=== PATIENT | female | born 1945 | race Caucasian/White ===

== ENCOUNTER 2018-01-07 09:22 | Outpatient (CLI) | payer MEDICARE, OTHER ==
--- NOTE | 2018-01-07 10:29 | RAD ---
CERVICAL SPINE THREE VIEWS: HISTORY: Neck pain and pain in the right shoulder. History of fall. COMPARISON: MRI cervical spine from 09/10/2016. FINDINGS: Three views of the cervical spine show normal height and alignment of the vertebral bodies without fr acture or subluxation. The intervertebral disks are narrowed, and moderate osteophytes are seen. No prevertebral soft tissue swelling is seen. The posterior facets are well aligned. There is posterior facet arthrosis throughout the cervical sp ine. IMPRESSION: Moderate degenerative changes of the cervical spine without acute osseous abnormality. POS: [facility]
== END 2018-01-07 09:23 | disposition home or self-care (01) ==
LOC: TBSIIMAG 09:22
PROVIDERS: ATTEND Neurological Surgery
DX: M54.2 Cervicalgia (principal); M47.892 Other spondylosis, cervical region
CPT/HCPCS: 72040

== ENCOUNTER 2018-01-14 13:38 | Outpatient (CLI) | payer MEDICARE, OTHER ==
--- NOTE | 2018-01-14 16:02 | MRI ---
MRI CERVICAL SPINE NONCONTRAST: DATE: 01/14/18. HISTORY: A 72-year-old female with cervical spondylosis. Cervicalgia. Right cervical radiculopathy. COMPARISON: None. FINDINGS: Vertebral body heights are maintained. Cervical spinal cord is normal in size and signal. C1-2: No central stenosis. C2-3: Disk space maintained. No high-grade central stenosis. No high-grade neural foraminal stenos is. Essentially normal right facet joint. Moderate left degenerative facet changes. C3-4: Moderate disk space narrowing. Prominent broad-based disk-osteophytic bar complex indents the ventral aspect of the spinal cord. Mildly thickened ligamentum flavum encroaches upon the posterior aspect of the spinal canal. Overall, moderate to severe central spinal canal stenosis. Bilateral m oderate-sized uncinate process osteophytes. Severe bilateral neural foraminal stenosis. Incompletel y visualized right facet joint, possibly normal. Moderate left degenerative facet hypertrophy. C4-5: Disk space maintained. Bone marrow edema at the right facet complex. Mild to moderate degene rative facet changes on the right. Small joint effusion in the left facet joint, but otherwise no hi gh-grade left degenerative facet changes. Slight grade I anterolisthesis of C4 on C5. Moderately th ickened ligamentum flavum encroaches upon the posterior aspect of the spinal canal. Moderate central spinal canal stenosis. Small bilateral uncinate process osteophytes. Severe right neural foraminal stenosis and moderate to severe left neural foraminal stenosis. C5-6: Mild disk space narrowing. Large broad-based disk-osteophytic bar complex indents the spinal cord and displaces it posteriorly. Mildly thickened ligamentum flavum abuts the dorsal surface of th e spinal canal. Severe central spinal canal stenosis. Moderate to large right uncinate process oste ophytes. Moderate-sized left uncinate process osteophytes. Very severe right neural foraminal steno sis. Somewhat severe left neural foraminal stenosis. Minimal bilateral degenerative facet hypertrop hy. C6-7: Mild disk space narrowing. Slight degenerative retrolisthesis of C6 on C7 plus prominent broa d-based disk-osteophytic bar complex encroaches upon the anterior aspect of the spinal canal. Mildly thickened ligamentum flavum. Moderate to severe central spinal canal stenosis. Large bilateral unc inate process osteophytes, right greater than left. Very severe right neural foraminal stenosis and severe left neural foraminal stenosis. Almost normal bilateral facet joints. C7-T1: Disk space maintained. Moderate to severe right degenerative facet changes. Left facet join t incompletely imaged. No central stenosis. Mild to moderate neural foraminal stenosis. Probably n o left neural foraminal stenosis. IMPRESSION: 1. Cervical spondylosis with multilevel degenerative disk disease and facet osteoarthrosis. 2. Right C4-5 facet arthritis, with bone marrow edema. 3. Multilevel high-grade central spinal canal stenosis at C3-4, C5-6 (severe), and C6-7. 4. Multilevel severe bilateral neural foraminal stenosis. POS: [facility]
== END 2018-01-14 13:39 | disposition home or self-care (01) ==
LOC: TBSIIMAG 13:38
PROVIDERS: ATTEND Neurological Surgery
DX: M47.812 Spondylosis without myelopathy or radiculopathy, cervical region (principal); M99.81 Other biomechanical lesions of cervical region; M48.02 Spinal stenosis, cervical region; M50.30 Other cervical disc degeneration, unspecified cervical region
CPT/HCPCS: 72141

== ENCOUNTER 2018-02-25 10:54 | Outpatient (CLI) | payer MEDICARE, OTHER ==
--- NOTE | 2018-02-25 12:26 | RAD ---
CERVICAL SPINE AP AND LATERAL STANDARD: Date: 02/25/18 HISTORY: M54.12, cervical radicular pain. COMPARISON: Cervical spine radiographs dated 01/07/18. FINDINGS: New ACDF hardware C5-C7 without hardware complication. Facet arthrosis is similar. No significant lis thesis. IMPRESSION: Satisfactory appearance of ACDF hardware without complication. POS: [facility]
== END 2018-02-25 10:55 | disposition home or self-care (01) ==
LOC: TBSIIMAG 10:54
PROVIDERS: ATTEND Neurological Surgery
DX: M54.12 Radiculopathy, cervical region (principal); Z98.1 Arthrodesis status
CPT/HCPCS: 72040

== ENCOUNTER 2018-04-14 13:10 | Outpatient (CLI) | payer MEDICARE, OTHER ==
--- NOTE | 2018-04-14 14:11 | RAD ---
THREE VIEWS CERVICAL SPINE: Comparison: 02-25-18 History: Status post anterior fusion. FINDINGS: Three views of the cervical spine shows the patient to be status post anterior fusion of C5 through C 7 with a plate and screws. Disc spaces are seen in the intervening disc spaces. No perihilar lucency is seen. No prevertebral soft tissue swelling is present. Intervertebral disc space narrowing and ost eophytes are seen surrounding the C3-4 intervertebral discs. IMPRESSION: Stable post-surgical changes of the cervical spine. POS: [facility]
== END 2018-04-14 13:11 | disposition home or self-care (01) ==
LOC: TBSIIMAG 13:10
PROVIDERS: ATTEND Neurological Surgery
DX: M54.12 Radiculopathy, cervical region (principal); Z98.1 Arthrodesis status
CPT/HCPCS: 72040

== ENCOUNTER 2018-06-10 08:54 | Outpatient (CLI) | payer MEDICARE, OTHER ==
[2018-06-10] MEDS ORDERED: Gadobenate Dimeglumine 529 MG/1 ML (20ML VIAL) ONE (09:00)
--- NOTE | 2018-06-10 10:21 | RAD ---
CERVICAL SPINE AP AND LATERAL STANDARD: HISTORY: M54.12, cervical radiculopathy. Chronic pain. COMPARISON: Cervical spine radiographs from 04/14/18. FINDINGS: Similar appearance of ACDF hardware C5-C7 with diskectomy changes. Moderate to severe degenerative d isk space height loss at C3-4. Moderate at C4-5. No significant listhesis. IMPRESSION: Satisfactory postoperative appearance. No evidence for hardware complication. POS: [facility]
--- NOTE | 2018-06-10 12:47 | MRI ---
MRI RIGHT SHOULDER WITHOUT CONTRAST: HISTORY: M25.519, shoulder pain. COMPARISON: None. FINDINGS: Biceps tendon: There is mild extraarticular biceps tenosynovial fluid. Moderate intraarticular tendi nosis. Labrum: The labrum is torn at the posterior-superior labrum, extending into the biceps labral anchor . Rotator cuff: There is a full-thickness, full-width supraspinatus tendon tear with fibers projecting in the mid humeral head. There is moderate undersurface partial tearing of the infraspinatus tendon with mild tendinosis. Mild tendinosis subscapularis. Cartilage: No high-grade full-thickness cartilage defect. Bones: There is a large subacromial keel osteophyte, which narrows the subacromial space approximate ly 4 mm. Moderate degenerative disease of the acromioclavicular joint. Normal glenoid version. The re are subcortical cysts of the infraspinatus footplate. Muscles: Muscles and muscle bulk are without significant atrophy. IMPRESSION: 1. Posterosuperior labral tear extending into the biceps labral anchor. 2. Full-thickness, full-width supraspinatus tendon tear from the footplate retracted to the mid shana ral head without significant muscle atrophy. POS: [facility]
--- NOTE | 2018-06-10 13:23 | MRI ---
MRI CERVICAL SPINE WITH AND WITHOUT CONTRAST: HISTORY: Cervical fusion. Neck pain. Cervical radiculopathy. COMPARISON: 01/14/2018 TECHNIQUE: A cervical spine MRI is performed with and without intravenous Gadolinium administration. Multiseque ntial, multiplanar imaging is performed. FINDINGS: There is evidence of interval cervical fusion hardware at C5, C6, and C7. Associated metallic suscep tibility artifact. No significant STIR hyperintensity to suggest vertebral body edema or ligamentous injury. There appears to be a T2 hyperintensity involving the right thyroid lobe, incompletely evaluated. No nemergent thyroid ultrasound can be performed. The visualized brain parenchyma, cervicomedullary junction, cervical cord, and upper thoracic cord wilder ve normal size and signal intensity. On the post contrast images, there is no abnormal enhancement of the vertebral bodies. There is no a bnormal enhancement of the visualized brain parenchyma and spinal cord. There is 2 mm of anterolisthesis of C2 upon C3. There is 2.4 mm of anterolisthesis of C4 upon C5. C2-C3: There is a central disk osteophyte complex. No significant central canal stenosis. The neur al foramina are patent. C3-C4: Moderate loss of disk space height. A broad-based disk osteophyte complex abuts the thecal s ac and effaces the ventral subarachnoid space. There is deformity of the ventral cord without T2 hyp erintensity in the cord. Moderate central canal stenosis. Moderate bilateral neural foraminal narro wing due to degenerative changes of the uncovertebral joints. C4-C5: There is a broad-based disk osteophyte complex with a central/left paracentral component. Th ere is deformity of the thecal sac with mild deformity of the midline ventral cord. Bilaterally, the neural foramina are patent. C5-C6: There is a broad-based disk osteophyte complex that abuts the thecal sac. The ventral subara chnoid space is effaced, and there is deformity of the ventral cord. Moderate central canal stenosis . Degenerative changes in the right uncovertebral joint result in moderate to severe right foraminal narrowing. Degenerative change in the left uncovertebral joint result in mild to moderate left fora maria c narrowing. C6-C7: A broad-based disk osteophyte complex abuts the thecal sac. The ventral subarachnoid space i s still maintained. Mild central canal stenosis. No T2 hyperintensity in the cord. Moderate to sev ere right and moderate to severe left neural foraminal narrowing. C7-T1: No significant disk osteophyte complex. No significant central canal stenosis. The neural f oramina are patent. There is persistent edema involving the right facet at C5-C6; however, the degree of edema has decrea sed. IMPRESSION: 1. Postoperative changes of the lumbar spine from C5 through C6. 2. Persistent spondylolisthesis. 3. Degenerative changes of the cervical spine, as detailed above. 4. Decreased but persistent edema involving the right facet at C4-C5. POS: [facility]
== END 2018-06-10 08:55 | disposition home or self-care (01) ==
LOC: SCSMRI 08:54
PROVIDERS: ATTEND Neurological Surgery
DX: M47.22 Other spondylosis with radiculopathy, cervical region (principal); M25.511 Pain in right shoulder; R60.0 Localized edema; M75.121 Complete rotator cuff tear or rupture of right shoulder, not specified as traumatic; S43.401A Unspecified sprain of right shoulder joint, initial encounter; M43.10 Spondylolisthesis, site unspecified; Z98.1 Arthrodesis status
CPT/HCPCS: 72040; 72156; 82565; A9579

== ENCOUNTER 2018-10-13 12:35 | Outpatient (CLI) | payer MEDICARE, OTHER ==
--- NOTE | 2018-10-13 15:41 | MRI ---
LUMBAR SPINE MRI WITHOUT CONTRAST: HISTORY: Low back pain with pain radiating down the right leg in the lateral tibia/fibula. COMPARISON: None. TECHNIQUE: Lumbar spine MRI is performed without intravenous Gadolinium administration. Multiplanar, multiseque ntial imaging is performed. FINDINGS: An appropriate T1 marrow signal intensity of the lumbar vertebrae. Lumbar spine vertebral body heigh t is maintained. There is no fracture. There is 2.7 mm of retrolisthesis of L1 upon L2, 5.8 mm ante rolisthesis of L4 upon L5. Appropriate T1 marrow signal intensity. No fracture. No STIR hyperinten sity to suggest vertebral body edema or ligamentous injury. Symmetric signal intensity of the psoas muscles. Appropriate signal intensity of the visualized anish d organs. Conus medullaris terminates at the upper aspect of L1. T12-L1: Adequate disk hydration. There is posterior element hypertrophy that results in mild centra l canal stenosis. Mild to moderate bilateral foraminal narrowing. L1-L2: Moderate loss of disk space height. Broad-based disk bulge, ligamentum flavum thickening, an d facet hypertrophy result in moderate central canal stenosis. Severe right and severe left foramina l narrowing. L2-L3: Adequate disk hydration. No significant posterior disk abnormality. No significant central canal stenosis. Moderate bilateral foraminal narrowing. L3-L4 Adequate disk hydration. Generalized disk bulge with left subarticular component. Ligamentum flavum thickening and facet hypertrophy result in moderate central canal stenosis. Narrowing of the left subarticular zone causing mass effect and partial obscuration of the traversing left L4 nerve r oot. Moderate bilateral foraminal narrowing. L4-L5: 5.8 mm anterolisthesis of L4 upon L5. There is preservation of disk space height. Broad-bas ed disk bulge, ligamentum flavum thickening, and facet hypertrophy result in severe central canal azeb nosis. There is fluid in both facet joints. Moderate to severe bilateral foraminal narrowing. L5-S1: Mild loss of disk space height. There is a central disk protrusion with a small inferior dis k extrusion into the right subarticular zone. Disk material abuts and partially obscures the elana ing right S1 nerve root. There is a small amount of disk material also in the left subarticular zone with partial obscuration of the traversing left S1 nerve root. Overall, there is mild central canal stenosis. Bilateral facet hypertrophy is present. Moderate bilateral foraminal narrowing. IMPRESSION: 1. Severe central canal stenosis at L4-L5. 2. Narrowing of both subarticular zones, right greater than left, at L5-S1. There is mass effect up on traversing S1 nerve roots, right greater than left. 3. Additional degenerative changes of the lumbar spine as above. POS: [facility]
== END 2018-10-13 12:36 | disposition home or self-care (01) ==
LOC: TBSIIMAG 12:35
PROVIDERS: ATTEND Neurological Surgery
DX: M47.26 Other spondylosis with radiculopathy, lumbar region (principal); M47.27 Other spondylosis with radiculopathy, lumbosacral region; M48.061 Spinal stenosis, lumbar region without neurogenic claudication; M48.07 Spinal stenosis, lumbosacral region; M53.3 Sacrococcygeal disorders, not elsewhere classified
CPT/HCPCS: 72148

== ENCOUNTER 2019-01-24 06:43 | Inpatient (IN) | payer MEDICARE, OTHER ==
[2019-01-21 13:35] VITALS: BMI 26.5
[2019-01-24 08:03] LABS: #Basophils 0.1 thou/uL (0.0-0.2); #Eosinphils 0.3 thou/uL (0.0-0.7); #Lymphocytes 2.6 thou/uL (1.20-3.40); #Monocytes 0.6 thou/uL (0.11-0.59); #Neutrophils 3.5 thou/uL (1.40-6.50); %Basophils 1.5 % (0.0-1.0); %Eosinophils 3.9 % (0.0-10.0); %Lymphocytes 36.4 % (21.0-51.0); %Monocytes 8.9 % (0.0-10.0); %Neutrophils 49.2 % (42.0-75.0); Hemoglobin 12.5 g/dL (12.0-16.0); Mean Corpuscular HGB CONC 31.9 g/dL (32.0-36.0); Mean Corpuscular Hemoglobin 29.5 pg (27.0-31.0); Mean Corpuscular Volume 92.5 fL (78.0-98.0); Mean Platelet Volume 8.6 fL (7.4-10.4); Platelet Count 238 thou/uL (130-400); RBC Distribution Width 11.3 % (11.5-14.5); Red Blood Cell (RBC) Count 4.25 mill/uL (4.20-5.40); White Blood Cell (WBC) Count 7.1 thou/uL (4.8-10.8)
[2019-01-24 08:19] LABS: Anion Gap 10 mmol/L (10-20); BUN (Urea Nitrogen) 18 mg/dL (9.8-20.1); Calc. Creatinine Clearance 51 mL/min (70-130); Calcium 9.6 mg/dL (7.8-10.44); Carbon Dioxide 30 mmol/L (23-31); Chloride 104 mmol/L (98-107); Estimated GFR-MDRD 52; Glucose 167 mg/dL (83-110); Potassium 4.6 mmol/L (3.5-5.1); Sodium 139 mmol/L (136-145)
[2019-01-24] MEDS ORDERED: Sodium Chloride 0.9% 10 ML ONE (08:49)
[2019-01-24] MEDS ORDERED: Levofloxacin 500 mg/D5W 100 ml Premix Bag ONE (08:55)
[2019-01-24] MEDS ORDERED: Clindamycin/D5W 900 mg/50 ml Premix Bag ONE (08:56)
[2019-01-24] MEDS ORDERED: Fentanyl 100 MCG/2 ML VIAL ONE ×3 (09:02→11:52)
[2019-01-24] MEDS ORDERED: Promethazine HCl 25 MG/ML VIAL IM PRN ×2 (10:43→13:05)
[2019-01-24] MEDS ORDERED: Promethazine HCl 25 MG/ML VIAL SLOW IVP PRN (10:43)
[2019-01-24] MEDS ORDERED: Ondansetron HCl/PF 4 MG/2 ML Vial IVP PRN (10:43)
[2019-01-24] MEDS ORDERED: traMADol HCl 50 MG TAB PO PRN ×2 (13:05)
[2019-01-24] MEDS ORDERED: diphenhydrAMINE 50 MG/ML VIAL IVP PRN (13:05)
[2019-01-24] MEDS ORDERED: Ondansetron PF 4 MG/2 ML Vial IM PRN (13:05)
[2019-01-24] MEDS ORDERED: Promethazine HCl 12.5 MG SUPP PR PRN (13:05)
[2019-01-24] MEDS ORDERED: diphenhydrAMINE 25 MG CAP PO PRN ×2 (13:05→13:46)
[2019-01-24] MEDS ORDERED: Promethazine 25 MG TAB PO PRN (13:05)
[2019-01-24] MEDS ORDERED: Acetaminophen 650 MG Suppository PR PRN (13:05)
[2019-01-24] MEDS ORDERED: Acetaminophen 325 MG TAB PO PRN (13:05)
[2019-01-24] MEDS ORDERED: Milk Of Magnesia 30 ML UDCUP PO PRN (13:05)
[2019-01-24] MEDS ORDERED: Morphine 4 MG/ML VIAL SLOW IVP PRN (13:05)
[2019-01-24] MEDS ORDERED: Mag-Al 1200 mg/1200 mg/30 ML UDCUP PO PRN (13:05)
[2019-01-24] MEDS: Morphine 2 MG/ML SYRINGE SLOW IVP PRN ×2 (13:45→17:12)
[2019-01-24] MEDS: Sodium Chloride 0.9% 1,000 ML IV SCH (13:45)
[2019-01-24] MEDS ORDERED: Furosemide 20 MG TAB PO PRN (13:47)
[2019-01-24] MEDS: tiZANidine HCl 4 MG TAB PO PRN (14:08)
[2019-01-24] MEDS ORDERED: Prevnar 13-Val Conj/PF 0.5 ML SYRINGE IM ONE (14:15)
[2019-01-24] MEDS ORDERED: HumaLOG 300 UNITS/3 ML VIAL SC PRN ×2 (15:04)
[2019-01-24] MEDS ORDERED: Dextrose 5% in Water 1,000 ML IV PRN (15:04)
[2019-01-24] MEDS ORDERED: Dextrose 50% Abboject 50 ML SYRINGE SLOW IVP PRN (15:04)
--- NOTE | 2019-01-24 15:22 | PDOC.PN ---
- Subjective Encounter Start Date: 01/24/19 Encounter Start Time: 15:21 -: old records requested/rev CONSULTED FOR MEDICAL MANAGEMENT pt is s/p lumbar laminectomy, c/o back pain, no chest pain, dyspnea or palpitation - Objective Resuscitation Status - Order Detail: 01/24/19 15:05 Resuscitation Status Routine Resuscitation Status: FULL: Full Resuscitation MAR Reviewed: Yes Vital Signs & Weight: Vital Signs (12 hours) Temp Pulse Resp BP Pulse Ox 01/24/19 12:35 97.0 F L 66 16 143/74 H 97 Weight Weight 150 lb Result Diagrams: 01/24/19 07:52 01/24/19 07:52 Radiology Reviewed by me: Yes EKG Reviewed by me: Yes Phys Exam - Physical Examination Constitutional: NAD HEENT: PERRLA, moist MMs, sclera anicteric Neck: no nodes, no JVD, supple, full ROM Respiratory: no wheezing, no rales, no rhonchi Cardiovascular: RRR, no significant murmur, no rub Gastrointestinal: soft, non-tender, no distention, positive bowel sounds Musculoskeletal: no edema, pulses present surgical site with dressing Neurological: non-focal, normal sensation, moves all 4 limbs Lymphatic: no nodes Psychiatric: normal affect, A&O x 3 Skin: no rash, normal turgor Dx/Plan (1) S/P lumbar laminectomy Code(s): Z98.890 - OTHER SPECIFIED POSTPROCEDURAL STATES Status: Acute (2) Anxiety and depression Code(s): F41.9 - ANXIETY DISORDER, UNSPECIFIED; F32.9 - MAJOR DEPRESSIVE DISORDER, SINGLE EPISODE, UNSPECIFIED Status: Chronic (3) Diabetes type 2, controlled Code(s): E11.9 - TYPE 2 DIABETES MELLITUS WITHOUT COMPLICATIONS Status: Chronic (4) Lumbar stenosis Code(s): M48.061 - SPINAL STENOSIS, LUMBAR REGION WITHOUT NEUROGENIC JOLEEN Status: Chronic (5) PAF (paroxysmal atrial fibrillation) Code(s): I48.0 - PAROXYSMAL ATRIAL FIBRILLATION Status: Chronic - Plan cont current plan of care, PT/OT * home medication reconciled * diabetes hyperglycemia protocol treatment started * pain control * code status- full code * medication reviewed as below * symptomatic treatment. Review of Systems - Review of Systems Constitutional: negative: fever, chills, sweats, weakness, malaise, other Eyes: negative: Pain, Vision Change, Conjunctivae Inflammation, Eyelid Inflammation, Redness, Other ENT: negative: Ear Pain, Ear Discharge, Nose Pain, Nose Discharge, Nose Congestion, Mouth Pain, Mouth Swelling, Throat Pain, Throat Swelling, Other Respiratory: negative: Cough, Dry, Shortness of Breath, Hemoptysis, SOB with Excertion, Pleuritic Pain, Sputum, Wheezing Cardiovascular: negative: chest pain, palpitations, orthopnea, paroxysmal nocturnal dyspnea, edema, light headedness, other Gastrointestinal: negative: Nausea, Vomiting, Abdominal Pain, Diarrhea, Constipation, Melena, Hematochezia, Other Genitourinary: negative: Dysuria, Frequency, Incontinence, Hematuria, Retention , Other Musculoskeletal: Back Pain. negative: Neck Pain, Shoulder Pain, Arm Pain, Hand Pain, Leg Pain, Foot Pain, Other - Medications/Allergies Allergies/Adverse Reactions: Allergies Allergy/AdvReac Type Severity Reaction Status Date / Time codeine Allergy Verified 01/21/19 13:35 oxycodone Allergy Verified 01/21/19 13:35 Penicillins Allergy Verified 01/21/19 13:35 Medications: Current Medications Acetaminophen (Tylenol) 650 mg PO Q4H PRN PRN Reason: Headache/Fever or Pain(1-3) Acetaminophen (Tylenol) 650 mg OR Q4H PRN PRN Reason: Headache/Fever or Pain(1-3) Al Hydroxide/Mg Hydroxide (Maalox) 30 ml PO Q4H PRN PRN Reason: Heartburn or Indigestion Baclofen (Lioresal) 10 mg PO HS [facility] Cholecalciferol (Vitamin D3) 1,000 units PO DAILY [facility] Clonazepam (Klonopin) 0.5 mg PO HS [facility] Dextrose/Water (Dextrose 50%) 25 gm SLOW IVP PRN PRN PRN Reason: Hypoglycemia Digoxin (Lanoxin) 0.125 mg PO DAILY [facility] Diphenhydramine HCl (Benadryl) 25 mg PO Q6H PRN PRN Reason: Itching Diphenhydramine HCl (Benadryl) 25 mg IVP Q6H PRN PRN Reason: Itching Diphenhydramine HCl (Benadryl) 25 mg PO HSPRN PRN PRN Reason: Itching & Insomnia Flecainide Acetate (Tambocor) 25 mg PO QAM [facility] Flecainide Acetate (Tambocor) 100 mg PO HS [facility] Furosemide (Lasix) 20 mg PO PRN PRN PRN Reason: Edema Glucagon (Glucagon) 1 mg IM PRN PRN PRN Reason: Hypoglycemia Sodium Chloride (Normal Saline 0.9%) 1,000 mls @ 75 mls/hr IV .[id number] [facility] Last Admin: 01/24/19 13:45 Dose: 1,000 mls Clindamycin Phosphate/Dextrose (900 mg/ Device) 50 mls @ 100 mls/hr IVPB Q8H [facility] Stop: 01/25/19 01:59 Dextrose/Water (D5w) 1,000 mls @ 0 mls/hr IV .Q0M PRN PRN Reason: Hypoglycemia Insulin Human Lispro (Humalog) 0 units SC .MODERATE SLIDING SC PRN PRN Reason: Moderate Correctional Scale Insulin Human Lispro (Humalog) 0 units SC .BEDTIME SLIDING SC PRN PRN Reason: Bedtime Correctional Scale Ketorolac Tromethamine (Toradol) 15 mg IVP Q6HR [facility] Stop: 01/26/19 12:01 Loratadine (Claritin) 10 mg PO DAILY [facility] Magnesium Hydroxide (Milk Of Magnesium) 30 ml PO Q12H PRN PRN Reason: Constipation Metformin HCl (Glucophage Xr) 2,000 mg PO QPM-WM [facility] Morphine Sulfate (Morphine) 2 mg SLOW IVP Q1H PRN PRN Reason: .MODERATE BREAKTHROUGH PAIN Last Admin: 01/24/19 13:45 Dose: 2 mg Morphine Sulfate (Morphine) 4 mg SLOW IVP Q1H PRN PRN Reason: SEVERE BREAKTHROUGH PAIN Ondansetron HCl (Zofran) 4 mg IM Q24H PRN PRN Reason: Nausea/Vomiting Promethazine HCl (Phenergan) 12.5 mg IM Q4H PRN PRN Reason: Nausea/Vomiting Promethazine HCl (Phenergan) 12.5 mg PO Q4H PRN PRN Reason: Nausea/Vomiting Promethazine HCl (Phenergan Suppository) 12.5 mg OR Q4H PRN PRN Reason: Nausea/Vomiting Sodium Chloride (Flush - Normal Saline) 10 ml IVF PRN PRN PRN Reason: Saline Flush Tizanidine HCl (Zanaflex) 4 mg PO Q6H PRN PRN Reason: MUSCLE SPASM Last Admin: 01/24/19 14:08 Dose: 4 mg Tramadol HCl (Ultram) 50 mg PO Q6H PRN PRN Reason: Moderate Pain (4-6) Tramadol HCl (Ultram) 100 mg PO Q6H PRN PRN Reason: Severe Pain (7-10)
[2019-01-24] MEDS ORDERED: metFORMIN XR 500 MG TAB PO SCH (17:00)
[2019-01-24] MEDS: Ketorolac Tromethamine 30 MG/ML VIAL IVP SCH ×2 (17:04→23:55)
[2019-01-24] MEDS: Clindamycin/D5W 900 MG in Premix Bag 1 BAG IVPB SCH (17:04)
[2019-01-24] MEDS ORDERED: Baclofen 10 MG TAB PO SCH (21:00)
[2019-01-24] MEDS ORDERED: Flecainide 50 MG TAB PO SCH (21:00)
[2019-01-24] MEDS ORDERED: clonazePAM 0.5 MG TAB PO SCH (21:00)
[2019-01-25] MEDS: Clindamycin/D5W 900 MG in Premix Bag 1 BAG IVPB SCH (00:36)
[2019-01-25] MEDS: tiZANidine HCl 4 MG TAB PO PRN ×2 (00:37→08:27)
[2019-01-25] MEDS: Sodium Chloride 0.9% 1,000 ML IV SCH ×2 (03:48→09:37)
--- NOTE | 2019-01-25 06:27 | PRG ---
DATE OF SERVICE: 01/25/2019 SUBJECTIVE: The patient is a 73-year-old female status post L4-L5 decompression and fusion. Following the surgery, she was transitioned to the Med/Surg floor. Overnight, she had some pain control issues, but reports she is just not getting comfortable this morning and starting to get some rest. She has ambulated several times to the bathroom and is voiding appropriately without difficulty. She denies any leg weakness, numbness, tingling, or bowel bladder issues. She has had no incisional drainage issues overnight. The patient is resting comfortably at this time. She has free active range of motion of all extremities. No focal motor weakness. No reflex asymmetry. Dressing is dry. PLAN: The patient would like to rest this morning. We will attempt to mobilize her further with nursing and physical therapy. If she mobilizes well throughout the day, anticipate she can go this afternoon. Job ID: [id number]
[2019-01-25] MEDS: Ketorolac Tromethamine 30 MG/ML VIAL IVP SCH ×2 (06:34→11:33)
--- NOTE | 2019-01-25 08:45 | OP ---
DATE OF PROCEDURE: 01/24/2019 STEREOTYPER: Yuly Lemus PA-C PROCEDURES PERFORMED: L4-L5 laminectomy, posterolateral arthrodesis, pedicle screw instrumentation at L4-5, demineralized bone matrix, and local morselized autograft. DESCRIPTION OF PROCEDURE: The patient brought to the operating room and intubated. She was rolled in the prone position on gel-filled chest rolls. An incision was made exposing the L4 and L5 and the level was confirmed by x-ray. We performed complete L5 and inferior L4 laminectomies, completely decompressing the neural elements at L4-5. We next placed pedicle screws at right L4 and right L5 using lateral fluoroscopic guidance. The eduin was secured between the screws, connected by nuts, which were final tightened. The wound was then extensively irrigated and maximum hemostasis was secured. A combination of demineralized bone matrix and local morselized autograft was laid over the lamina and posterolateral surfaces for the purpose of arthrodesis. Vancomycin powder was applied and the wound was then closed in anatomic layers. Job ID: [id number]
[2019-01-25] MEDS ORDERED: Flecainide 50 MG TAB PO SCH (09:00)
[2019-01-25] MEDS ORDERED: Loratadine 10 MG TAB PO SCH (09:00)
[2019-01-25] MEDS ORDERED: Digoxin 0.125 MG TAB PO SCH (09:00)
--- NOTE | 2019-01-25 10:46 | PDOC.PN ---
- Subjective Encounter Start Date: 01/25/19 Encounter Start Time: 08:30 Patient seen and examined. No new complaints. No overnight events - Objective Resuscitation Status - Order Detail: 01/24/19 15:05 Resuscitation Status Routine Resuscitation Status: FULL: Full Resuscitation MAR Reviewed: Yes Vital Signs & Weight: Vital Signs (12 hours) Temp Pulse Resp BP Pulse Ox 01/25/19 08:24 75 01/25/19 08:11 97.9 F 69 12 108/67 96 01/25/19 04:00 98.5 F 76 16 137/93 H 95 01/25/19 00:00 97.8 F 81 16 131/81 95 Weight Weight 150 lb I&O: 01/24/19 01/25/19 01/26/19 06:59 06:59 06:59 Intake Total 770 Balance 770 Result Diagrams: 01/24/19 07:52 01/24/19 07:52 Additional Labs: Accuchecks 01/25/19 01/24/19 01/24/19 05:33 20:47 16:26 POC Glucose 174 H 129 H 143 H Phys Exam - Physical Examination Constitutional: NAD HEENT: PERRLA, moist MMs, sclera anicteric Neck: no JVD, supple Respiratory: no wheezing, no rales, no rhonchi Cardiovascular: RRR, no significant murmur, no rub Gastrointestinal: soft, non-tender, no distention, positive bowel sounds Musculoskeletal: no edema, pulses present Neurological: non-focal, normal sensation Lymphatic: no nodes Psychiatric: normal affect, A&O x 3 Skin: no rash, normal turgor Dx/Plan (1) S/P lumbar laminectomy Code(s): Z98.890 - OTHER SPECIFIED POSTPROCEDURAL STATES Status: Acute (2) Anxiety and depression Code(s): F41.9 - ANXIETY DISORDER, UNSPECIFIED; F32.9 - MAJOR DEPRESSIVE DISORDER, SINGLE EPISODE, UNSPECIFIED Status: Chronic (3) Diabetes type 2, controlled Code(s): E11.9 - TYPE 2 DIABETES MELLITUS WITHOUT COMPLICATIONS Status: Chronic (4) Lumbar stenosis Code(s): M48.061 - SPINAL STENOSIS, LUMBAR REGION WITHOUT NEUROGENIC JOLEEN Status: Chronic (5) PAF (paroxysmal atrial fibrillation) Code(s): I48.0 - PAROXYSMAL ATRIAL FIBRILLATION Status: Chronic - Plan cont current plan of care * medication reviewed as below * symptomatic treatment * doing well * medically stable * discharge per primary team. Review of Systems - Review of Systems ENT: negative: Ear Pain, Ear Discharge, Nose Pain, Nose Discharge, Nose Congestion, Mouth Pain, Mouth Swelling, Throat Pain, Throat Swelling, Other Respiratory: negative: Cough, Dry, Shortness of Breath, Hemoptysis, SOB with Excertion, Pleuritic Pain, Sputum, Wheezing Cardiovascular: negative: chest pain, palpitations, orthopnea, paroxysmal nocturnal dyspnea, edema, light headedness, other Gastrointestinal: negative: Nausea, Vomiting, Abdominal Pain, Diarrhea, Constipation, Melena, Hematochezia, Other Genitourinary: negative: Dysuria, Frequency, Incontinence, Hematuria, Retention , Other Musculoskeletal: negative: Neck Pain, Shoulder Pain, Arm Pain, Back Pain, Hand Pain, Leg Pain, Foot Pain, Other Skin: negative: Rash, Lesions, [place], Bruising, Other - Medications/Allergies Allergies/Adverse Reactions: Allergies Allergy/AdvReac Type Severity Reaction Status Date / Time codeine Allergy Verified 01/21/19 13:35 oxycodone Allergy Verified 01/21/19 13:35 Penicillins Allergy Verified 01/21/19 13:35 Medications: Current Medications Acetaminophen (Tylenol) 650 mg PO Q4H PRN PRN Reason: Headache/Fever or Pain(1-3) Acetaminophen (Tylenol) 650 mg OK Q4H PRN PRN Reason: Headache/Fever or Pain(1-3) Al Hydroxide/Mg Hydroxide (Maalox) 30 ml PO Q4H PRN PRN Reason: Heartburn or Indigestion Baclofen (Lioresal) 10 mg PO HS [facility] Last Admin: 01/24/19 20:19 Dose: 10 mg Cholecalciferol (Vitamin D3) 1,000 units PO DAILY [facility] Last Admin: 01/25/19 08:24 Dose: 1,000 units Clonazepam (Klonopin) 0.5 mg PO HS [facility] Last Admin: 01/24/19 20:20 Dose: 0.5 mg Dextrose/Water (Dextrose 50%) 25 gm SLOW IVP PRN PRN PRN Reason: Hypoglycemia Digoxin (Lanoxin) 0.125 mg PO DAILY [facility] Last Admin: 01/25/19 08:24 Dose: 0.125 mg Diphenhydramine HCl (Benadryl) 25 mg PO Q6H PRN PRN Reason: Itching Diphenhydramine HCl (Benadryl) 25 mg IVP Q6H PRN PRN Reason: Itching Diphenhydramine HCl (Benadryl) 25 mg PO HSPRN PRN PRN Reason: Itching & Insomnia Flecainide Acetate (Tambocor) 25 mg PO QAM [facility] Last Admin: 01/25/19 08:25 Dose: 25 mg Flecainide Acetate (Tambocor) 100 mg PO HS [facility] Last Admin: 01/24/19 20:19 Dose: 100 mg Furosemide (Lasix) 20 mg PO PRN PRN PRN Reason: Edema Glucagon (Glucagon) 1 mg IM PRN PRN PRN Reason: Hypoglycemia Sodium Chloride (Normal Saline 0.9%) 1,000 mls @ 75 mls/hr IV .[id number] [facility] Last Admin: 01/25/19 09:37 Dose: Not Given Dextrose/Water (D5w) 1,000 mls @ 0 mls/hr IV .Q0M PRN PRN Reason: Hypoglycemia Insulin Human Lispro (Humalog) 0 units SC .MODERATE SLIDING SC PRN PRN Reason: Moderate Correctional Scale Insulin Human Lispro (Humalog) 0 units SC .BEDTIME SLIDING SC PRN PRN Reason: Bedtime Correctional Scale Ketorolac Tromethamine (Toradol) 15 mg IVP Q6HR [facility] Stop: 01/26/19 12:01 Last Admin: 01/25/19 06:34 Dose: Not Given Loratadine (Claritin) 10 mg PO DAILY [facility] Last Admin: 01/25/19 08:24 Dose: 10 mg Magnesium Hydroxide (Milk Of Magnesium) 30 ml PO Q12H PRN PRN Reason: Constipation Metformin HCl (Glucophage Xr) 2,000 mg PO QPM-WM [facility] Last Admin: 01/24/19 17:04 Dose: 2,000 mg Morphine Sulfate (Morphine) 2 mg SLOW IVP Q1H PRN PRN Reason: .MODERATE BREAKTHROUGH PAIN Last Admin: 01/24/19 17:12 Dose: 2 mg Morphine Sulfate (Morphine) 4 mg SLOW IVP Q1H PRN PRN Reason: SEVERE BREAKTHROUGH PAIN Ondansetron HCl (Zofran) 4 mg IM Q24H PRN PRN Reason: Nausea/Vomiting Promethazine HCl (Phenergan) 12.5 mg IM Q4H PRN PRN Reason: Nausea/Vomiting Promethazine HCl (Phenergan) 12.5 mg PO Q4H PRN PRN Reason: Nausea/Vomiting Promethazine HCl (Phenergan Suppository) 12.5 mg OK Q4H PRN PRN Reason: Nausea/Vomiting Sodium Chloride (Flush - Normal Saline) 10 ml IVF PRN PRN PRN Reason: Saline Flush Tizanidine HCl (Zanaflex) 4 mg PO Q6H PRN PRN Reason: MUSCLE SPASM Last Admin: 01/25/19 08:27 Dose: 4 mg Tramadol HCl (Ultram) 50 mg PO Q6H PRN PRN Reason: Moderate Pain (4-6) Tramadol HCl (Ultram) 100 mg PO Q6H PRN PRN Reason: Severe Pain (7-10)
[2019-01-25 12:53] VITALS: BP 96/67; TEMP 97.8
--- NOTE | 2019-01-26 01:59 | DIS ---
DATE OF ADMISSION: 01/24/2019 DATE OF DISCHARGE: 01/25/2019 HOSPITAL COURSE: The patient is a 73-year-old female, status post L4-L5 decompression and fusion for spondylolisthesis. Following the surgery, she was transitioned to the Med/Surg floor, where her pain has been well controlled with p.o. medications. She is tolerating regular diet and she is voiding appropriately. She has been ambulating this afternoon in the department without any difficulty. The patient would like to go home. On exam, she is comfortable, in no acute distress. Free active range of motion of all extremities. No focal motor weakness or reflex asymmetry. Incision is dry and intact. We will plan to dismiss to home. I have discussed home care precautions and will follow up in 2 weeks. Job ID: [id number]
== END 2019-01-25 13:05 | disposition home or self-care (01) | DRG 460 ==
LOC: SURG A 06:43 → EDSTATUS 09:32 → SURG A 12:31
PROVIDERS: ADMIT Neurological Surgery; ATTEND Neurological Surgery
PROC: 0SG0071 Fusion of Lumbar Vertebral Joint with Autologous Tissue Substitute, Posterior Approach, Posterior Column, Open Approach (ICD-10-PCS; principal; 2019-01-24)
PROC: 01NB0ZZ Release Lumbar Nerve, Open Approach (ICD-10-PCS; 2019-01-24)
DX: M43.16 Spondylolisthesis, lumbar region (principal); M48.061 Spinal stenosis, lumbar region without neurogenic claudication; I48.0 Paroxysmal atrial fibrillation; E11.9 Type 2 diabetes mellitus without complications; F41.8 Other specified anxiety disorders; Z88.5 Allergy status to narcotic agent; Z88.0 Allergy status to penicillin; Z79.84 Long term (current) use of oral hypoglycemic drugs
CPT/HCPCS: 36415; 36416; 76000; 80048; 85025; 93005; 93010; C1713; C1768; J1885; J1956; J2270; J3010; J3370; J3490

== ENCOUNTER 2019-02-10 10:46 | Outpatient (CLI) | payer MEDICARE, OTHER ==
--- NOTE | 2019-02-10 11:07 | RAD ---
XR Lumbar Spine 2 Or 3 View History: [M 54.16 lumbar radiculopathy] Comparison: MRI lumbar spine September 2018 Findings: Right unilateral posterior spinal fusion hardware at L4/L5 laminectomy changes. There is lo w-grade anterolisthesis of L4 over L5, similar to the MRI examination. No new acute superimposed fracture or malalignment. Degenerative disc space height loss, moderate to severe, at L1/L2 with dege nerative retrolisthesis. Multilevel bridging anterior osteophytes. Right upper quadrant surgical clips. Paraspinal soft tissues are otherwise unremarkable. Impression: Satisfactory postoperative appearance.
== END 2019-02-10 10:47 | disposition home or self-care (01) ==
LOC: TBSIIMAG 10:46
PROVIDERS: ATTEND Neurological Surgery
DX: M54.16 Radiculopathy, lumbar region (principal); Z98.890 Other specified postprocedural states
CPT/HCPCS: 72100

== ENCOUNTER 2019-03-17 10:23 | Outpatient (CLI) | payer MEDICARE, OTHER ==
--- NOTE | 2019-03-17 15:24 | NM ---
WHOLE BODY BONE SCAN WITH TRIPLE PHASE IMAGING OF THE KNEES: HISTORY: Right knee replacement in 2012 with right knee pain. RADIOPHARMACEUTICAL: 30 mCi technetium 99m-MDP injected intravenously. FINDINGS: There is symmetric blood flow to both knees without abnormal blood pooling. Delayed images demonstra te mildly increased uptake in the right knee consistent with postop9 changes of knee replacement. In creased uptake in the lower right lumbar spine consistent with postop changes seen on radiographs of 02/10/2019. Increased uptake in the right side of the cervical spine is likely due to degenerative ch rhonda. Increased uptake in the shoulders, elbows, wrists, and ankles is consistent with degenerative changes. Tracer excretion through the kidneys is within normal limits. IMPRESSION: No evidence of infection or loosening in the right knee arthroplasty. POS: OFF
== END 2019-03-17 10:24 | disposition home or self-care (01) ==
LOC: NM 10:23
PROVIDERS: ATTEND Family Medicine Sports Medicine
DX: Z47.1 Aftercare following joint replacement surgery (principal); Z96.651 Presence of right artificial knee joint
CPT/HCPCS: 78315; A9503

== ENCOUNTER 2019-03-23 14:52 | Outpatient (CLI) | payer MEDICARE, OTHER ==
--- NOTE | 2019-03-23 15:06 | RAD ---
EXAM: 2 views of the lumbosacral spine HISTORY: Low back pain status post surgery COMPARISON: 02/10/2019 FINDINGS: 2 views of the lumbosacral spine shows the patient is status post posterior fusion of L4 an d L5 with right-sided pedicle screws. Subtle lucency surrounds the L4 pedicle screw. The vertebral bodies demonstrate normal height. There is subtle grade 1 anterolisthesis of L4 on L5, unchanged. Mod erate osteophytes are seen throughout the lumbar spine. The sacroiliac joints are unremarkable. IMPRESSION: Stable exam
== END 2019-03-23 14:53 | disposition home or self-care (01) ==
LOC: TBSIIMAG 14:52
PROVIDERS: ATTEND Neurological Surgery
DX: M43.16 Spondylolisthesis, lumbar region (principal)
CPT/HCPCS: 72100

== ENCOUNTER 2019-04-07 14:32 | Outpatient (CLI) | payer MEDICARE, OTHER ==
--- NOTE | 2019-04-07 17:15 | CT ---
CT LUMBAR SPINE WITHOUT CONTRAST: 04/07/19 Axial tomograms obtained with multiplanar reconstruction. INDICATIONS: Lumbar stenosis with claudication. Recent lumbar surgery. COMPARISON: Comparison made to MRI lumbar spine 10/13/18. Postoperative changes have occurred since the MRI of 10/13/18. [id number]. Loss of disc space and degenerative change at L1-2 again noted. Slight posterolisthesis of L1-2 noted. Mild anterolisthesis at L4-5 is seen. At L1-2, there is posterior disc protrusion with calcification of the posterior disc margin. This imp inges on the thecal sac and is associated with posterior hypertrophic changes resulting in moderate c entral stenosis. Diffuse disc bulge extends into the foramina bilaterally. These changes were present on the MRI. At L2-3, mild disc bulge. Facet and ligamentous hypertrophy. Mild central canal stenosis. At L3-4, broad based disc bulge slightly more pronounced to the left. Facet and ligamentous hypertrop hy. Moderate central canal stenosis. Left foraminal encroachment and asymmetric disc bulge and facet hypertrophy. At L4, right pedicle screw is adequately positioned. At L4-5, anterolisthesis. Posterior disc bulge. Posterior laminectomy change. Facet hypertrophy. Mild central canal stenosis due to facet hypertrophy and disc bulge. Bilateral foraminal narrowing due to disc bulge and facet hypertrophy. At L5-S1, broad based disc bulge more pronounced centrally as noted on the previous MRI. Prominent fa cet hypertrophy. Posterior laminectomy change. Foraminal stenosis due to disc bulge and hypertrophic change. IMPRESSION: Degenerative and postoperative changes of the lumbar spine with findings at each level described keyshawn mckeon POS: SAMANTHA
== END 2019-04-07 14:33 | disposition home or self-care (01) ==
LOC: TBSIIMAG 14:32
PROVIDERS: ATTEND Neurological Surgery
DX: M48.062 Spinal stenosis, lumbar region with neurogenic claudication (principal); M47.816 Spondylosis without myelopathy or radiculopathy, lumbar region; Z98.890 Other specified postprocedural states
CPT/HCPCS: 72131

== ENCOUNTER 2024-11-04 20:09 | Inpatient (IN) | payer MEDICARE, OTHER ==
[2024-11-04 22:37] LABS: ALT (SGPT) 13 U/L (Less than 34); AST (SGOT) 42 U/L (11-34); Albumin 3.1 g/dL (3.1-4.5); Alkaline Phosphatase 74 U/L (40-110); Anion Gap 18 mmol/L (10-20); BUN (Urea Nitrogen) 14 mg/dL (9.8-20.1); Bilirubin, Total 0.5 mg/dL (0.3-1.2); Calc. Creatinine Clearance 0 mL/min (70-130); Calcium 9.2 mg/dL (7.8-10.44); Carbon Dioxide 21 mmol/L (23-31); Chloride 107 mmol/L (98-107); Estimated GFR 39; Globulin 4.7 g/dL (2.4-3.5); Glucose 118 mg/dL (83-110); Potassium 4.1 mmol/L (3.5-5.1); Protein, Total 7.8 g/dL (5.8-8.1); Sodium 142 mmol/L (136-145)
[2024-11-04 23:00] LABS: Actual Bicarbonate (HCO3v) 28.9 mEq/L (22-28); Base Excess 4.4 mEq/L (-2.0 to +3.0); Calcium, Ionized (venous) 1.14 mmol/L (1.16-1.32); Chloride (VBG) 103 mmol/L (98-106); Hematocrit-VBG 39 % (36.0-47.0); Hemoglobin (Hb) 13.3 g/dL (11.7-16.1); Potassium (VBG) 4.07 mmol/L (3.70-5.30); pH (venous) 7.448 (7.32-7.43)
[2024-11-04 23:02] LABS: #Basophils 0.11 10x3/uL (0.0-0.2); %Basophils 1.3 % (0.0-1.0); %Eosinophils 1.3 % (0.0-10.0); %Lymphocytes 31.1 % (21.0-51.0); %Monocytes 8.4 % (0.0-10.0); %Neutrophils 57.7 % (42.0-75.0); Hemoglobin 8.4 g/dL (12.0-16.0); Mean Corpuscular Hemoglobin 26.6 pg (27.0-31.0); Mean Corpuscular Volume 88.6 fL (78.0-98.0); Mean Platelet Volume 10.1 fL (7.4-10.4); Platelet Count 339 10x3/uL (130-400); RBC Distribution Width 14.7 % (11.5-14.5); Red Blood Cell (RBC) Count 3.16 mill/uL (4.20-5.40)
[2024-11-04 23:19] LABS: Acetaminophen Less than 10 mcg/mL (Less than 10); Alcohol Less than 10.0 mg/dL (Less than 10); Magnesium 2.4 mg/dL (1.6-2.6); Salicylate Less than 8.0 mg/dL (Less than 8.0)
[2024-11-04 23:52] LABS: Bacteria/HPF None Seen HPF (None Seen); Bilirubin Negative (Negative); Blood, Urine Negative (Negative); CAUTI Indications for Culture Alt mental st,lethar; Clarity Clear (Clear); Glucose, Urine (Dipstick) Normal (Negative); Ketone, Urine Negative (Negative); Leukocyte 250 Leu/uL (Negative); Nitrite Negative (Negative); Protein, Urine (Dipstick) 20 mg/dL (Neg-Trace); RBC/HPF 0-3 HPF (0-3); Specific Gravity, Urine 1.021 (1.002-1.036); Squamous Epithelial 0-3 HPF (0-3); Urobilinogen Normal mg/dL (Less than 2); pH, Urine 6.5 (5.0-9.0)
[2024-11-04 23:54] LABS: Urine Culture Reflex No No
[2024-11-04 23:55] LABS: Amphetamine Not Detected (NotDetected); Barbiturates Screen Not Detected (NotDetected); Benzodiazepine Screen Detected (NotDetected); Cocaine Metabolite Screen Not Detected (NotDetected); Methadone Not Detected (NotDetected); Methamphetamine Not Detected (NotDetected); Opiate Screen Not Detected (NotDetected); Oxycodone Screen Not Detected (NotDetected); Phencyclidine (PCP) Not Detected (NotDetected); THC/Cannabinoid Screen Not Detected (NotDetected); Tricyclic Screen Not Detected (NotDetected)
[2024-11-05] MEDS ORDERED: Ondansetron PF 4 MG/2 ML Vial IVP PRN (00:48)
[2024-11-05] MEDS ORDERED: Dextrose 5% in Water 1,000 ML IV PRN (00:48)
[2024-11-05] MEDS ORDERED: Glucagon 1 MG/ML KIT IM PRN (00:48)
[2024-11-05] MEDS ORDERED: Dextrose 50% Abboject 50 ML SYRINGE SLOW IVP PRN (00:48)
[2024-11-05 02:22] VITALS: BMI 29.0
[2024-11-05] MEDS ORDERED: traMADol HCl 50 MG TAB ONE (02:26)
[2024-11-05] MEDS: traMADol HCl 50 MG TAB PO PRN (02:30)
[2024-11-05] MEDS: Lactated Ringer's 1,000 ML IV SCH (02:30)
[2024-11-05 04:14] LABS: #Basophils 0.11 10x3/uL (0.0-0.2); %Basophils 1.3 % (0.0-1.0); %Eosinophils 1.8 % (0.0-10.0); %Lymphocytes 34.6 % (21.0-51.0); %Monocytes 10.8 % (0.0-10.0); %Neutrophils 51.4 % (42.0-75.0); Hematocrit 35.2 % (36.0-47.0); Hemoglobin 10.6 g/dL (12.0-16.0); Mean Corpuscular HGB CONC 30.1 g/dL (32.0-36.0); Mean Corpuscular Hemoglobin 26.5 pg (27.0-31.0); Mean Platelet Volume 10.5 fL (7.4-10.4); Platelet Count 289 10x3/uL (130-400); RBC Distribution Width 14.8 % (11.5-14.5)
[2024-11-05 05:08] LABS: Troponin I 0.022 ng/mL (< 0.028)
[2024-11-05 05:11] LABS: Anion Gap 17 mmol/L (10-20); BUN (Urea Nitrogen) 16 mg/dL (9.8-20.1); Calc. Creatinine Clearance 42 mL/min (70-130); Calcium 9.3 mg/dL (7.8-10.44); Carbon Dioxide 24 mmol/L (23-31); Chloride 106 mmol/L (98-107); Estimated GFR 43; Glucose 105 mg/dL (83-110); Potassium 4.1 mmol/L (3.5-5.1); Sodium 143 mmol/L (136-145)
[2024-11-05 09:18] LABS: Troponin I 0.019 ng/mL (< 0.028)
[2024-11-05] MEDS: Flecainide 50 MG TAB PO SCH (22:20)
[2024-11-06] MEDS: Acetaminophen 325 MG TAB PO PRN (00:35)
[2024-11-06] MEDS: Furosemide 20 MG TAB PO SCH (09:03)
[2024-11-06] MEDS ORDERED: traMADol HCl 50 MG TAB PO PRN (09:51)
[2024-11-06] MEDS ORDERED: Baclofen 10 MG TAB PO PRN (09:51)
[2024-11-06] MEDS: Ezetimibe 10 MG TAB PO SCH (12:24)
[2024-11-06] MEDS: Docusate 100 MG CAP PO SCH (12:24)
[2024-11-06 12:48] VITALS: TEMP 97.8
[2024-11-06 17:07] VITALS: BP 134/63
[2024-11-06] MEDS ORDERED: clonazePAM 0.5 MG TAB PO SCH (21:00)
[2024-11-07] MEDS ORDERED: Multivit, Therapeutic 1 TAB PO SCH (09:00)
[2024-11-07] MEDS ORDERED: FLU (Fluad Triv) TS24-25 (65UP)/MF59C/PF 45 MCG/0.5 ML Syringe IM ONE (09:00)
[2024-11-07] MEDS ORDERED: Docusate 100 MG CAP PO SCH (09:00)
== END 2024-11-06 17:00 | disposition home or self-care (01) | DRG 918 ==
LOC: ERS 20:09 → ERHOLD 11-05 00:58 → 2NO 11-05 17:39 → OBSVTOIN 11-05 17:43
PROVIDERS: ADMIT Student in an Organized Health Care Education/Training Program; ATTEND Internal Medicine
DX: T42.8X1A Poisoning by antiparkinsonism drugs and other central muscle-tone depressants, accidental (unintentional), initial encounter (principal); N17.9 Acute kidney failure, unspecified; G47.10 Hypersomnia, unspecified; F41.9 Anxiety disorder, unspecified; E11.9 Type 2 diabetes mellitus without complications; I48.0 Paroxysmal atrial fibrillation; F32.A Depression, unspecified; R41.0 Disorientation, unspecified; G89.29 Other chronic pain; E86.0 Dehydration; I11.0 Hypertensive heart disease with heart failure; I50.9 Heart failure, unspecified; Z88.0 Allergy status to penicillin; Z88.8 Allergy status to other drugs, medicaments and biological substances; R79.89 Other specified abnormal findings of blood chemistry; M54.50 Low back pain, unspecified
CPT/HCPCS: 36415; 36416; 70450; 70551; 71045; 80048; 80053; 80306; 80307; 81001; 82140; 82805; 83605; 83735; 83880; 84443; 84484; 85025; 87040; 87086; 93005; 93880; 94760; J7120